=== PATIENT | female | born 2000 | race Caucasian/White ===

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

== ENCOUNTER → 2022-04-10 11:52 | Outpatient (CLI) | payer MEDICAID, SELFPAY ==
--- NOTE | 2022-04-10 11:58 | XR_ITS ---
FINAL REPORT TECHNIQUE: Chest PA & Lateral CLINICAL HISTORY: dyspnea, chest tightness FINDINGS: 2 views of the chest were performed. The heart size is normal. The mediastinum is within normal limits. There is no acute cardiopulmonary process. There are no pleural effusions. There is no pneumothorax. The bony thorax appears intact. IMPRESSION: No acute cardiopulmonary process. Reviewed, Interpreted and Dictated by Tommy Lima MD Transcribed by Jason Banuelos Authenticated and [facility][1]
== END ==
PROVIDERS: PCP Physician Assistant; Visit Provider Physician Assistant
DX: R06.00 Dyspnea, unspecified (principal)
CPT/HCPCS: 71046

== ENCOUNTER → 2022-06-22 11:00 | Outpatient (CLI) | payer MEDICAID, SELFPAY ==
[2022-06-22 18:56] LABS: Amphetamine/Metha Screen,Urine Negative ng/ml (<1000); Barbiturates Screen,Urine Negative ng/ml (<200)
[2022-06-22 18:57] LABS: Benzodiazepines Screen,Urine Negative ng/ml (<200)
[2022-06-22 18:58] LABS: Cannabinoid Screen,Urine Negative ng/ml (<50)
[2022-06-22 18:59] LABS: Cocaine Screen,Urine Negative ng/ml (<300)
[2022-06-22 19:00] LABS: Methadone Screen,Urine Negative ng/ml (<300); Opiate Screen,Urine Negative ng/ml (<300)
[2022-06-22 19:01] LABS: Phencyclidine Screen,Urine Negative ng/ml (<25)
== END ==
PROVIDERS: PCP Physician Assistant; Visit Provider Physician Assistant
DX: F90.9 Attention-deficit hyperactivity disorder, unspecified type (principal); Z79.899 Other long term (current) drug therapy
CPT/HCPCS: 80305

== ENCOUNTER → 2022-06-28 08:22 | Outpatient (CLI) | payer MEDICAID, SELFPAY ==
--- NOTE | 2022-06-28 08:26 | US_ITS ---
FINAL REPORT TECHNIQUE: Multiple transverse and longitudinal images CLINICAL HISTORY: Upper quadrant pain, right FINDINGS: There are gallstones of the gallbladder. No biliary ductal dilatation is appreciated. No fluid collections are seen. Limited portions of the right liver are unremarkable. Limited portions of the right kidney are unremarkable. IMPRESSION: 1. Cholelithiasis. 2. No evidence of biliary obstruction. Reviewed, Interpreted and Dictated by Johnson Ralph MD Transcribed by Mere Zavala Authenticated and [facility]
== END ==
PROVIDERS: PCP Physician Assistant; Visit Provider Physician Assistant
DX: R10.11 Right upper quadrant pain (principal)
CPT/HCPCS: 76705

== ENCOUNTER → 2022-07-06 10:50 | Outpatient (CLI) | payer MEDICAID, SELFPAY ==
[2022-07-06 11:17] LABS: Basophils # 0.1 K/mm3 (0-0.2); Basophils % 1.3 % (0.1-2.0); Eosinophils # 0.2 K/mm3 (0.0-0.4); Eosinophils % 2.4 % (0.1-12.0); Hematocrit 37.6 % (37.0-47.0); Hemoglobin 11.9 g/dL (12.2-16.2); Lymphocytes # 2.5 K/mm3 (0.7-4.5); Lymphocytes % 28.5 % (10-50); Mean Corpuscular HGB Conc 31.7 g/dL (31.8-35.4); Mean Corpuscular Volume 69.2 fl (81-99); Mean Platelet Volume 6.9 fl (7.4-10.4); Monocytes # 0.4 K/mm3 (0.1-1.0); Monocytes % 4.7 % (1.7-9.3); Neutrophils # 5.5 K/mm3 (1.8-7.8); Neutrophils % 63.1 % (37.0-80.0); Platelet Count 377 K/mm3 (142-424); Red Blood Count 5.44 M/mm3 (4.20-5.40); Red Cell Distribution Width 17.2 % (11.5-17.5); White Blood Count 8.7 K/mm3 (4.5-13.0)
[2022-07-06 11:48] LABS: Alanine Aminotransferase 13 U/L (12-78); Albumin Level 4.4 g/dl (3.5-5.0); Albumin/Globulin Ratio 1.5 (1.1-1.8); Alkaline Phosphatase 94 U/L (38-126); Anion Gap 7.1 mEq/L (5-15); Aspartate Amino Transferase 18 U/L (14-36); Bilirubin,Total 0.2 mg/dl (0.2-1.3); Blood Urea Nitrogen 18 mg/dl (7-17); Calcium 8.9 mg/dl (8.4-10.2); Carbon Dioxide 24 mmol/L (22.0-30.0); Chloride 110 mmol/L (98-107); Estimated Glomerular Filt Rate 81 ml/min (>60); GFR (African American) 98 ML/MIN (>60); Glucose 54 mg/dl (74-100); Potassium 4.1 mmoL/L (3.5-5.1); Sodium 137 mmol/L (136-145); Total Protein,Serum 7.4 g/dl (6.3-8.2)
== END ==
PROVIDERS: PCP Physician Assistant; Visit Provider Surgery
DX: K80.20 Calculus of gallbladder without cholecystitis without obstruction (principal)
CPT/HCPCS: 36415; 80053; 85025

== ENCOUNTER 2022-07-17 10:15 | Day surgery (SDC) | payer MEDICAID, SELFPAY ==
[2022-07-14 10:41] VITALS: BMI 29.9
[2022-07-17] VITALS (9 sets, daily range): BP systolic 91–147; BP diastolic 64–96; PULSE 90–97; RESP 16–22; TEMP 36.1–43; O2SAT 95–99
[2022-07-17 10:49] LABS: Urine Pregnancy, HCG Qual. Negative (Negative)
--- NOTE | 2022-07-17 11:12 | EXP.ANES.CKL ---
[facility] Disclaimer: The information contained in this section may have been updated after the patient was seen, as this information can be updated by other users. Medical History Asthma Attention Deficit Hyperactivity Disorder (ADHD) Insomnia Polyneuritis Seizure disorder Surgical History History of bladder surgery Family History Other Family history of stroke Lung cancer Social History (Updated 07/17/22 @ 10:58 by Laila Forrest RN) Smoking Status: Current every day smoker tobacco type: e-cigarettes alcohol intake: never substance use type: denies use current occupational status: unemployed Travel in the last 8 weeks: None [facility] Anesthesia Checklist Patient Identification Patient Identification: Arm Band and Family Structural Data Admitted From: Home Planned Operative Procedure/s: Lap Cholecystectomy Consent for Planned Operative Procedure(s) Verified: Yes Verified Documents: Surgical Consent NPO Status Verified Time NPO: 00:00 Additional verifications Patient : No Anesthesia Reactions: No Hx Blood Transfusions: No Blood Transfusion Reaction: No Cephalosporin Allergy: No Previous Colonoscopy: No Airway Assessment C-Spine Mobility Assessed: Yes TMJ Mobility Assessed: Yes Dentition: Good Dentition Neurological Assessment Level of Consciousness: Awake, Alert, Appropriate and Follows Commands Hx Seizures: Yes Anesthesia Plan Anesthesia Risk discussed: Yes ASA Class: II Anesthesia Type: General Preoperative Comments Pre-Operative Comments: Last seizure 4-5 weeks ago. Seizure of unknown etiology. ADHA. Benadryl cause hives. Amoxicillin causes blisters. Transient Asthma.
--- NOTE | 2022-07-17 14:46 | XR_ITS ---
FINAL REPORT CLINICAL HISTORY: CHOLANGIOGRAM IN OR .02 fluoro time FINDINGS: Two spot films for intraoperative cholangiogram was obtained in 0.2 minutes. There is opacification of the common duct. No filling defect is identified. IMPRESSION: Fluoroscopy time as above. Reviewed, Interpreted and Dictated by Zenia Payan MD Transcribed by Mere Zavala Authenticated and [facility]
--- NOTE | 2022-07-17 15:06 | EXP.OP.NOTE ---
Date of procedure: 07/17/22 Pre-op Diagnosis:: Symptomatic gallstones Post-op Diagnosis:: Same Procedure performed:: Laparoscopic cholecystectomy with intraoperative cholangiogram Surgeon:: Bishnu Uriostegui MD COATING MIXER SUPERVISOR:: Other Anesthesia: GETA Estimated blood loss (mL): 25 Clinical Note:: Patient is a 21-year-old female referred by Nelly Wolf for gallbladder.? She resides in [place] Patient is approximately 5 months from a normal vaginal delivery.? She states that after the of her child she has had some problems of epigastric and substernal pain radiating into the back.? This seems to be worse with spicy foods.? She actually had been seen recently in the emergency department at [facility] due to some more significant pains.? Possible gallbladder disease was apparently suspected and it was recommended she undergo gallbladder ultrasound through her primary care provider.? Gallbladder ultrasound reveals multiple gallstones with no evidence of any ductal dilatation or fluid collections. Operative findings:: She had a slightly distended gallbladder with multiple small gallstones. She had mild fatty infiltration of the liver. There was inflammation around the ilsa hepatis which made initial delineation of anatomy difficult. Operative note:: Patient was taken to the operating room. She was positioned in supine position. General anesthesia was induced via endotracheal tube. Abdomen was prepped and draped in the standard surgical fashion. Infraumbilical skin incision was made. Dissection was carried down to the fascia. While performing abdominal wall lift Veress needle was inserted. CO2 pneumoperitoneum was achieved to 15 mmHg. 11 mm optical trocar was inserted at the umbilicus. Intraperitoneal contents were visualized. She was positioned in reverse Trendelenburg left side down. A couple of 5 mm trocars were inserted in the right upper abdomen. 10 mm trocar was inserted in the epigastrium. She had some mild fatty infiltration of the liver. Gallbladder was grasped retracted anteriorly and superiorly over the dome of the liver. Infundibulum of the gallbladder was retracted anterior laterally. Blunt dissection was carried out at the neck of the gallbladder bluntly incising the visceral peritoneum. Dissection was rather difficult and it appears as though the neck of the gallbladder tapered to the cystic duct. It was unclear as to the definitive layout of the cystic duct. Due to the question delineating the anatomy and due to the small stones in the neck of the gallbladder decision was made to perform intraoperative cholangiogram. Cystic duct was clipped proximal to the gallbladder. Through a 2 mm incision made in the right upper abdomen taut cholangiocatheter introducer was inserted. Small incision was made in the cystic duct as a ductotomy. Cholangiocatheter was carefully manipulated into the cystic duct where it was secured with a Hemoclip. Ultimately intraoperative cholangiogram was performed which revealed normal filling of the cystic duct and biliary tree with no obvious obstruction, filling defect, or mass. Patient was then repositioned and the cholangiocatheter was removed. The cystic duct was multiply clipped and sharply divided. Cystic artery was identified and carefully coagulated with VIANNEY ultrasonic harmonic brittany and divided. Gallbladder was dissected free from the liver in a retrograde fashion using VIANNEY ultrasonic harmonic brittany gallbladder was placed within an Endo Catch retrieval device removed from the peritoneal cavity via the umbilical trocar site which required some minimal extension of the fascial incision for delivery. Gallbladder fossa was inspected for hemostasis. Limited use of electrocautery was used on the gallbladder fossa and surrounding liver at the falciform ligament for good hemostasis. Trocars were then removed as CO2 pneumoperitoneum was evacuated. Fascia the umbilicus was closed with sever
--- NOTE | 2022-07-17 15:08 | P.PNANES_ITS ---
[facility] Anesthesia Record Part I Anesthesia Record I Intake, IV Amount: 1,200 Estimated blood loss (mL): 15 Urine output (mL): 0 Blood Products used (#): none Blood Pressure: 91/64 SaO2: 99 Pulse Rate: 95 Respiratory Rate: 22 Temperature: 97.9 F Patient is:: Drowsy and Stable Stable to PACU at:: 14:58
--- NOTE | 2022-07-18 07:32 | P.PNANES_ITS ---
[facility] Anesthesia Record Part II Anesthesia Record Part II Discharge Time: 15:18 Destination: Surgical Day Care (OP Surgery) PACU nurse assessment reviewed?: Yes Patient Condition:: Good Anesthesia Complications:: None Swallowing reflex intact?: Yes Cyanosis?: No Blood Pressure: 147/96 Pulse Rate: 94 Temperature: 98.1 F Mental Status: Alert & Oriented Pain level:: 0 Nausea and/or vomitting:: None Intake, IV Amount: 0
[2022-07-18 07:33] VITALS: BP 147/96; PULSE 94; TEMP 36.7
== END 2022-07-17 16:09 | disposition home or self-care (01) ==
PROVIDERS: PCP Physician Assistant; Visit Provider Surgery
PROC: 0FT44ZZ Resection of Gallbladder, Percutaneous Endoscopic Approach (ICD-10-PCS; CPT 47562; principal; 2022-07-17 11:45)
DX: F17.210 Nicotine dependence, cigarettes, uncomplicated; Z79.899 Other long term (current) drug therapy; K80.10 Calculus of gallbladder with chronic cholecystitis without obstruction
CPT/HCPCS: 47563; 74019; 76000; 81025; 96374; J2405

== ENCOUNTER → 2022-10-23 14:30 | Outpatient (CLI) | payer MEDICAID, SELFPAY ==
[2022-10-23 18:29] LABS: Amphetamine/Metha Screen,Urine Negative ng/ml (<1000)
[2022-10-23 18:30] LABS: Barbiturates Screen,Urine Negative ng/ml (<200)
[2022-10-23 18:31] LABS: Benzodiazepines Screen,Urine Negative ng/ml (<200); Cannabinoid Screen,Urine Negative ng/ml (<50)
[2022-10-23 18:32] LABS: Opiate Screen,Urine Negative ng/ml (<300)
[2022-10-23 18:33] LABS: Cocaine Screen,Urine Negative ng/ml (<300); Methadone Screen,Urine Negative ng/ml (<300)
[2022-10-23 18:34] LABS: Phencyclidine Screen,Urine Negative ng/ml (<25)
== END ==
PROVIDERS: PCP Physician Assistant; Visit Provider Physician Assistant
DX: Z79.899 Other long term (current) drug therapy (principal)
CPT/HCPCS: 80305

== ENCOUNTER 2023-07-11 13:44 | Outpatient (CLI) | payer MEDICAID, SELFPAY ==
--- NOTE | 2023-07-11 13:54 | XR_ITS ---
FINAL REPORT CLINICAL HISTORY: right hand pain shielded FINDINGS: Right hand Three views were obtained. There is no acute fracture or dislocation. The joint spaces appear normal. No soft tissue abnormality is identified. IMPRESSION: No acute process. Reviewed, Interpreted and Dictated by Bishnu Smith III, MD Transcribed by Mere Zavala Authenticated and [facility]
== END 2023-07-11 23:59 ==
LOC: RAD 13:44
PROVIDERS: PCP Physician Assistant; Visit Provider Physician Assistant
DX: M79.641 Pain in right hand (principal)
CPT/HCPCS: 73130

== ENCOUNTER 2025-06-03 17:02 | Emergency (ER) | payer MEDICAID, SELFPAY ==
--- OUTSIDE RECORDS SUMMARY | 2025-05-29 10:45 | XMS_ITS | Encounter Summary ---
Author Organization [facility] Address [address] [place] [address] Care Team Providers Care Air Grinder Name Role Phone Paulina Chowdary APRN Primary Care Provider Reason for Visit * Reason Comments Cough Sore Throat Fatigue Headache Dizzy, coughing yell ow stuff Encounter Details Date Type Department Care Team (Late st Contact Info) Description 05/29/2025 10:45 AM EST Office Visit [facility] [address] [place] [phone] Paulina Chowdary APRN [address] [place] [address] Sore throat (Primary Dx); Acute pharyngitis, unspecified etiology; Viral syndrome; Influenza A Social History Tobacco Use Types Packs/Day Years Used Date Smoking Tobacco: Never Smokeless Tobacco: Never Alcohol Use Standard Drinks/Week Comments Not Currently 0 (1 standard drink = 0.6 oz pur e alcohol) PHQ-2 Answer Date Recorded Patient Health Questionnaire-2 Score 0 05/29/2025 Comments Unknown Sex and Gender Information Value Date Recorded Sex Assigned at Female 08/17/2023 8:40 AM EDT Legal Sex Female 12:01 PM EDT Gender Identity Female 08/17/2023 8:40 AM EDT Sexual Orientation Straight 08/17/2023 8: 40 AM EDT Occupation Industry Job Start Date Job End Date unemployed Not on file Not on file Not on file documented as of this encounter Last Filed Vital Signs Vital Sign Reading Time Taken Comments Blood Pressure 122/78 05/29/2025 10:38 AM EST Pulse 147 05/29/2025 10:38 AM EST Temperature 37 C (98.6 F) 05/29/2025 10:38 AM EST Respiratory Rate - - Oxygen Saturation 97% 05/29/2025 10:38 AM EST Inhaled Oxygen Concentration - - Weight 132 kg (290 lb 12.8 oz) 05/29/2025 10:38 AM EST Height 170.2 cm (5' 7 ) 05/29/2025 10:38 AM EST Body Mass Index 45.55 05/29/2025 10:38 AM EST documented in this encounter Functional Status * PHQ-2/PHQ-9: Depression Screening Question Answer Date of Assessment Author Little interest or pleasure in doing things Not at all 05/29/2025 10:40 AM Betzy Roth MA Feeling down, depressed, or hopeless Not at all 05/29/2025 10:40 AM Vince Roth MA Patient Health Questionnaire-2 Score 0 05/29/2025 10:40 AM Elijah Roth MA How difficult have these problems made it for you to do your work, take care of things at home, or get along with other people? Not difficult at all 05/29/2025 10:40 AM Betzy Roth MA documented as of this encounter Mental Status * PHQ-2/PHQ-9: Depression Screening Question Answer Entry Date Author Little interest or pleasure in doing things Not at all 05/29/2025 10:40 AM Betzy Roth MA Feeling down, depressed, or hopeless Not at all 05/29/2025 10:40 AM Betzy Roth MA Patient Health Questionnaire-2 Score 0 05/29/2025 10:40 AM Betzy Roth MA How difficult have these problems made it for you to do your work, take care of things at home, or get along with other people? Not difficult at all 05/29/2025 10:40 AM Betzy Roth MA documented in this encounter Progress Notes * Paulina Chowdary APRN - 05/29/2025 10:45 AM EST Images from the original note were not included. Office Note Name: Lydia Holden : 2000 Chief Complaint Cough, Sore Throat, Fatigue, and Headache (Dizzy, coughing yellow stuff) Subjective History of Present Illness The patient presents for evaluation of respiratory illness. She began experiencing symptoms a few days prior to , initially attributing them to dry air due to her preference for a cool sleeping environment. She experienced morning sore throats that resolved without intervention. However, her condition deteriorated on and has continuedto worsen. She reports a persistent cough, particularly severe in the mornings, necessitating the use of cough drops. She also experiences back pain, which she attributes to a previous epidural procedure. She describes a general feeling of malaise and lack of energy, with an episode of dizziness occurring during her walk to the clinic. She reports no recent gastrointestinal symptoms such as vomiting, diarrhea, or nausea. She has been experiencing chills but is uncertain about the presence of fever. No other household members are currently ill. 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 Objective Past Medical History: Diagnosis Date ADHD (attention deficit hyperactivity disorder) Anxiety Chlamydia Depression Past Surgical History: Procedure Laterality Date APPENDECTOMY BLADDER SURGERY CHOLECYSTECTOMY Family History Problem Relation Name Age of Onset Stroke Mother Diabetes Maternal Aunt Vital Signs BP 122/78 (BP Location: Left arm, Patient Position: Sitting, Cuff Size: Adult) Pulse (!) 147 Temp 98.6 ??F (37 ??C) (Temporal) Ht 170.2 cm (67 ) Wt 132 kg (290 lb 12.8 oz) SpO2 97% BMI 45.55 kg/m?? Estimated body mass index is 45.55 kg/m?? as calculated from the following: Height as of this encounter: 170.2 cm (67 ). Weight as of this encounter: 132 kg (290 lb 12.8 oz). Facility age limit for growth %bret is 20 years. Physical Exam Vitals reviewed. HENT: Head: Normocephalic and atraumatic. Right Ear: Tympanic membrane, ear canal and external ear normal. Left Ear: Tympanic membrane, ear canal and external ear normal. Nose: Congestion present. Mouth/Throat: Pharynx: Oropharynx is clear. Posterior oropharyngeal erythema present. Eyes: Conjunctiva/sclera: Conjunctivae normal. Cardiovascular: Rate and Rhythm: Normal rate and regular rhythm. Pulses: Normal pulses. Heart sounds: Normal heart sounds. Pulmonary: Effort: Pulmonary effort is normal. Breath sounds: Normal breath sounds. Abdominal: General: Bowel sounds are normal. Palpations: Abdomen is soft. Musculoskeletal: Cervical back: Neck supple. Skin: General: Skin is warm and dry. Neurological: Mental Status: She is alert and oriented to person, place, and time. POCT Results (if applicable): Results for orders placed or performed in visit on 05/29/25 POCT SARS-CoV-2 + Flu Antigen JEB Collection Time: 05/29/25 10:49 AM Specimen: Swab Result Value Ref Range SARS Antigen Not Detected Not Detected, Presumptive Negative Influenza A Antigen JEB Detected (A) Not Detected Influenza B Antigen JEB Not Detected Not Detected Internal Control Passed (A) Passed Lot Number [id number] Expiration Date 10/14/2025 POC Rapid Strep A Collection Time: 05/29/25 10:50 AM Specimen: Swab Result Value Ref Range Rapid Strep A Screen Negative Negative, VALID, INVALID, Not Performed Internal Control Passed Passed Lot Number [id number] Expiration Date 05/29/2026 Assessment and Plan Diagnoses and all orders for this visit: 1. Sore throat (Primary) - Cancel: Covid-19 + Flu A&B AG, Veritor - POCT SARS-CoV-2 + Flu Antigen JEB - POC Rapid Strep A 2. Acute pharyngitis, unspecified etiology - POCT SARS-CoV-2 + Flu Antigen JEB - POC Rapid Strep A 3. Viral syndrome - POCT SARS-CoV-2 + Flu Antigen JEB - POC Rapid Strep A 4. Influenza A Assessment & Plan 1. Influenza. She tested positive for influenza. The patient reports symptoms including body aches, chills, and asore throat that worsened over time. She also experiences significant fatigue and dizziness. A prescription for cough syrup has been provided, to be taken up to four times daily as needed. Additionally, ibuprofen has been prescribed to manage her fever and body aches. She is advised to maintain adequate hydration and rest. A work note has been issued for her absence today and on Sunday. Follow Up No follow-ups on file. Patient or patient livestock sales representative verbalized consent for the use of Ambient Listening during the visit with Paulina Chowdary APRN for chart documentation. 05/29/2025 11:20 EST Paulina Chowdary APRN documented in this encounter Plan of Treatment Not on file documented as of this encounter Procedures Procedure Name Priority Date/Time Associated Diagnosis Comments POCT RAPID STREP A Routine 05/29/2025 10 :50 AM EST Sore throat Acute pharyngitis, unspecified etiology Viral syndrome POC FLU + SARS ANTIGEN JEB Routine 05/29/2025 10:49 AM EST Sore throat Acute pharyngitis, unspecified etiology Viral syndrome documented in this encounter Results * POC Rapid Strep A (05/29/2025 10:50 AM EST) [facility] Rapid Strep A Screen Negative Negative, VALID, INVALID, Not Performed [facility] Internal Control Passed Passed [facility] Lot Number [id number] [facility] Expiration Date 05/29/2026 [facility] Swab 05/29/2025 10:5 0 AM EST Paulina Chowdary APRN POINT OF CARE TEST ORDERABL ES Final Result [facility]
[address] [place] [address], * (ABNORMAL) POCT SARS-CoV-2 + Flu Antigen JEB (05/29/2025 10:49 AM EST) SARS Antigen Not Detected Not Detected, Presumptive Negative Influenza A Antigen JEB Detected(A) Not Detected Influenza B Antigen JEB Not Detected Not Detected Internal Control Passed(A) Passed Lot Number [id number] Expiration Date 10/14/2025 Swab 05/29/2025 10:4 9 AM EST us Paulina Chowdary APRN POINT OF CARE TEST ORDERABL ES Final Result documented in this encounter Visit Diagnoses Diagnosis Sore throat- Primary Acute pharyngitis Acute pharyngitis, unspecified etiology Viral syndrome Unspecified viral infection, in conditions classified elsewhere and of unspecified site Influenza A Influenza with other respiratory manifestations documented in this encounter Additional Health Concerns Infection Onset Date Last Indicated Resolved Time Influenza 05/29/2025 05/29/2025 Assessment Noted Time PHQ-2 Depression Total Score: 2 08/15/19 2:57 PM EDT documented as of this encounter Care Teams Air Grinder Relationship Specialty Start Date End Date Paulina Chowdary, FAUCET POLISHER [address] [place] [id number] PCP - General Family Medicine 08/15/23 documented as of this encounter
--- OUTSIDE RECORDS SUMMARY | 2025-06-03 17:21 | XMS_ITS | Encounter Summary ---
Author Organization [facility] Address [address] [place] [id number] Care Team Providers Care Marine Equipment Research Engineer Name Role Phone EpiPaulina gray Julian MINING AND QUARRYING MACHINERY REPAIRER Primary Care Provider [phone] Reason for Visit * Reason Comments Med Refill Encounter Details Date Type Department Care Team (Late st Contact Info) Description 04/10/2025 Refill [facility] [address] [place] [phone] Chris Granda APRN [address] [place], [place] [id number] Attention deficit hyperactivity disorder (ADHD), combined type Social History Tobacco Use Types Packs/Day Years Used Date Smoking Tobacco: Never Smokeless Tobacco: Never Alcohol Use Standard Drinks/Week Comments Not Currently 0 (1 standard drink = 0.6 oz pur e alcohol) PHQ-2 Answer Date Recorded Retired PHQ-9: Brief Depression Severity Measure Score 13 08/15/2023 Comments Unknown Sex and Gender Information Value Date Recorded Sex Assigned at Female 08/17/2023 8:40 AM EDT Legal Sex Female 12:01 PM EDT Gender Identity Female 08/17/2023 8:40 AM EDT Sexual Orientation Straight 08/17/2023 8: 40 AM EDT Occupation Industry Job Start Date Job End Date unemployed Not on file Not on file Not on file documented as of this encounter Plan of Treatment Not on file documented as of this encounter Visit Diagnoses Diagnosis Attention deficit hyperactivity disorder (ADHD), combined type documented in this encounter Additional Health Concerns Assessment Noted Time PHQ-2 Depression Total Score: 2 08/15/19 24 2:57 PM EDT documented as of this encounter Care Teams Marine Equipment Research Engineer Relationship Specialty Start Date End Date Paulina Chowdary APRN [address] [place] [address] PCP - General Family Medicine 08/15/23 documented as of this encounter
--- OUTSIDE RECORDS SUMMARY | 2025-06-03 17:21 | XMS_ITS | Patient Health Record ---
Author Organization [facility] Billing Info Address [address] [place] [phone] Phone [phone] Care Team Providers Care Diet Clerk Name Role Phone OANH CASIANO MD [facility] [phone] Allergies Allergen (clinical drug ingredient) Drug/Non Drug Allergy documented on EMR Reaction Allergy Type Onset Date Status diphenhydramine Benadryl Unknown Drug Allergy A ctive amoxicillin Amoxicillin Unknown Drug Allergy Act karthik Reason For Referral No Information Medications Medication SIG (Take, Route, Frequency, Duration) Notes Start Date End Date Diagnosis (ICD Code) Status Adderall XR 30 MG Capsule Extended Release 24 Hour Oral; Duration: 30 Days Active Social History Sex Observation Social History Observation Description Sex Observation Female Social History Social History Social Info Question Answer Notes Tobacco Status: Patient is a non tobacco user Illicit Drug Use: Patient/Family reports: No illicit d rug use Alcohol Use: Patient does not use alcohol Problems Problem Type SNOMED Code ICD Code Dates Problem Status W/U Status Risk Notes Problem Attention deficit hyperactivity disorder (080500115) ADHD (attention deficit hyperactivity disorder) (F90.9) Added On:06/21 Active confirmed Plan Of Treatment No Information Insurance Providers Payer Name Payer Address Payer Phone Subscriber Number Group Number Insured Name Patient Relationship to Insured Coverage Start Date Coverage End Date [facility] [place] [employer] [address] [address] CLAIMS DEPARTMENT [place], [place] [id number] Lydia Holden Self - patient is the insured Medical (General) History Medical History History ICD Code ADHD (attention deficit hyperactivity di sorder) F90.9 Surgical History Surgery Date(Month/Year) Bladder Lap Appy Lap Jane
--- OUTSIDE RECORDS SUMMARY | 2025-06-03 17:21 | XMS_ITS | Encounter Summary ---
Author Organization [facility] Address [address] [place] [address] Care Team Providers Care Septic Technician Name Role Phone EpiPaulina gray Julian PATIENT CARRIER Primary Care Provider [phone] Reason for Visit * Reason Onset Date Comments Med Refill 04/10/2025 Encounter Details Date Type Department Care Team (Late st Contact Info) Description 04/10/2025 Refill [facility] [address] [place] [phone] Chris Granda APRN [address] [place] [address] Attention deficit hyperactivity disorder (ADHD), combined type [...] on file documented as of this encounter Miscellaneous Notes * Telephone Encounter - Ivone Donis MA - 04/10/2025 10:07 AM EST Duplicate rx was sent on 04/01 documented in this encounter Plan of Treatment Not on file documented as of this encounter Visit Diagnoses Diagnosis Attention deficit hyperactivity disorder (ADHD), combined type documented in this encounter Additional Health Concerns Assessment Noted Time PHQ-2 Depression Total Score: 2 08/15/19 24 2:57 PM EDT documented as of this encounter Care Teams Septic Technician Relationship Specialty Start Date End Date Paulina Chowdary, PATIENT CARRIER [address] [place], [place] [id number] PCP - General Family Medicine 08/15/23 documented as of this encounter
--- OUTSIDE RECORDS SUMMARY | 2025-06-03 17:21 | XMS_ITS | Encounter Summary ---
Author Organization [facility] Address [address] [place] [address] Care Team Providers Care Actor Understudy Name Role Phone Paulina Chowdary APRN Primary Care Provider [phone] Encounter Details Date Type Department Care Team (Latest Contact Info) Description 05/29/2025 Travel Social History Tobacco Use Types Packs/Day Years [...] documented as of this encounter Visit Diagnoses Not on filedocumented in this encounter Additional Health Concerns Infection Onset Date Last Indicated Resolved Time COVID (rule out) 05/29/2025 05/29/2025 05/29/2025 10:42 AM EST Influenza 05/29/2025 05/29/2025 Assessment Noted Time PHQ-2 Depression Total Score: 2 08/15/19 24 2:57 PM EDT documented as of this encounter Care Teams Actor Understudy Relationship Specialty Start Date End Date Paulina Chowdary APRN [address] [place] [id number] PCP - General Family Medicine 08/15/23 documented as of this encounter
--- OUTSIDE RECORDS SUMMARY | 2025-06-03 17:21 | XMS_ITS | Clinical Summary ---
Author Organization [facility] Address [address] [place] [address] Care Team Providers Care Dairy Feed Sales Consultant Name Role Phone Paulina Chowdary APRN Primary Care Provider Allergies Active Allergy Reactions Criticality Noted Date Comments Amoxicillin Unknown - Low Severity 07/29/2021 Diphenhydramine Unknown - Low Severity 07/29/19 22 Medications * This document contains information received from the source organization and may not represent a complete record from that organization. amphetamine-dextr oamphetamine (ADDERALL) 10 MG tabletIndications :Attention deficit hyperactivity disorder (ADHD), combined type Take 1 tablet by mouth Every Afternoon. 30 tablet 5 Active amphetamine-dextr oamphetamine XR (Adderall XR) 30 MG 24 hr capsuleIndication s:Attention deficit hyperactivity disorder (ADHD), combined type Take 1 capsule by mouth Every Morning 30 capsule 5 Active brompheniramine-p seudoephedrine-DM 30-2-10 MG/5ML syrupIndications: Influenza A Take 10 mL by mouth 4 (Four) Times a Day As Needed for Congestion. 250 mL 5 Active ibuprofen (Advil) 200 MG tabletIndications :Influenza A Take 1 tablet by mouth Every 6 (Six) Hours As Needed for Moderate Pain. 30 tablet 5 Active amphetamine-dextr oamphetamine (ADDERALL) 10 MG tabletIndications :Attention deficit hyperactivity disorder (ADHD), combined type Take 1 tablet by mouth Every Afternoon. 30 tablet 5 05/05/20 25 Discontin ued(Reord er) amphetamine-dextr oamphetamine XR (Adderall XR) 30 MG 24 hr capsuleIndication s:Attention deficit hyperactivity disorder (ADHD), combined type Take 1 capsule by mouth Every Morning 30 capsule 5 05/25/20 25 Discontin ued(Reord er) amphetamine-dextr oamphetamine XR (Adderall XR) 30 MG 24 hr capsuleIndication s:Attention deficit hyperactivity disorder (ADHD), combined type Take 1 capsule by mouth Every Morning 30 capsule 5 05/26/20 25 Discontin ued(Reord er) Active Problems Problem Noted Date Diagnosed Date Influenza A 05/29/2025 Encounter to establish care 08/18/2023 Assessment & Plan (08/18/2023 6:54 AM EDT): Patient here today to establish care with diagnoses of anxiety, depression and ADHD. She is in need of a comprehensive physical exam which she is agreeable to complete during follow-up in 3 months. Attention deficit hyperactiv ity disorder (ADHD), combined type 08/15/2023 Assessment & Plan (08/08/2024 11:38 AM EST): Patient diagnosed with ADD at such a young age she cannot even remember. She had been maintained on her current dose of Adderall XR 30 mg every morning and 5 mg daily in the evening for many many years. She verbalized both hyperactivity and inattentive components. Patient's Perfecto report reviewed and satisfactory, UDS and controlled substance agreement is up-to-date. Will continue her Adderall 5 mg in the afternoon and XR 30 mg every morning dosing. Assessment & Plan (05/08/2024 7:02 PM EST): Patient diagnosed with ADD at such a young age she cannot even remember. She had been maintained on her current dose of Adderall XR 30 mg every morning and 5 mg daily in the evening for many many years. She verbalized both hyperactivity and inattentive components. His Perfecto report reviewed and satisfactory. Will continue current Adderall dosing. UDS obtained in office today, CSA updated. Will continue Adderall 5 mg daily and Adderall XR 30 mg every morning. Follow-up in 3-month Assessment & Plan (01/31/2024 4:03 PM EDT): Patient diagnosed with ADD at such a young age she cannot even remember. She had been maintained on her current dose of Adderall XR 30 mg every morning and 5 mg daily in the evening for many many years. She verbalized both hyperactivity and inattentive components. His Perfecto report reviewed and satisfactory. Will continue current Adderall dosing. Patient is leaving on vacation on March 03 and will be gone when her next prescription is due. She would like permission given to pharmacy to feel a few days early so that she does not run out while out of town. Assessment & Plan (11/19/2023 3:08 PM EDT): Patient diagnosed with ADD at such a young age she cannot even remember. She had been maintained on her current dose of Adderall XR 30 mg every morning and 5 mg daily in the evening for many many years. She verbalized both hyperactivity and inattentive components. Perfecto report reviewed and satisfactory, we will continue Adderall at current dosing. Assessment & Plan (10/22/2023 4:47 PM EDT): diagnosed with ADD at such a young age she cannot even remember. She had been maintained on her current dose of Adderall XR 30 mg every morning and 5 mg daily in the evening for many many years. She verbalized both hyperactivity and inattentive components. Perfecto report reviewed and satisfactory, we will continue Adderall at current dosing. Assessment & Plan (08/18/2023 6:52 AM EDT): Patient states that she was unable to get her Adderall from her previous PCP after testing positive for marijuana on her random urine drug screen. Patient is adamant that she had not smoked marijuana so she is unsure how her urine drug test was contaminated. Patient states she was diagnosed with ADHD at such a young age she cannot even remember. She has been maintained on her current dose of Adderall XR 30 mg every morning and 5 mg daily Adderall in the evening for many many years. She states both and hyperactivity and inattentive component. -Patient advised that if urine drug screen is positive for any controlled substances besides her Adderall she will be unable to receive treatment at our office. Controlled substance agreement reviewed and signed. Patient has submitted urine drug screen. Will wait for results before refilling Adderall. Anxiety and depression 08/15/2023 Assessment & Plan (08/08/2024 11:40 AM EST): In regards to anxiety and depression patient began treatment with medications, counseling and therapy at the age of 14 after the of her father. She has chosen not to pursue therapy and counseling in adulthood feeling that it was not beneficial to her, as she was never comfortable talking to strangers. She feels her mood has been stable on escitalopram 10 mg daily, But today feels that her anxiety has been increasing. She notes easier irritability and agitation, she also notes some lethargy and lack of motivation. Increase lexapro to 20mg Vraylar sample during last visit. Patient states it did provide excellent mood stability, however she took it in the morning and made her too tired and if she took it in the evening it made her stay awake. We discussed taking it at a different time than her afternoon dose of Adderall. Assessment & Plan (05/08/2024 7:05 PM EST): In regards to anxiety and depression patient began treatment with medications, counseling and therapy at the age of 14 after the of her father. She has chosen not to pursue therapy and counseling in adulthood feeling that it was not beneficial to her, as she was never comfortable talking to strangers. She feels her mood has been stable on escitalopram 10 mg daily, But today feels that her anxiety has been increasing. She notes easier irritability and agitation, she also notes some lethargy and lack of motivation. Increase lexapro to 20mg Sample vraylar 1.5mg daily with the patient. She is going to call the office in 2 weeks, if beneficial will send prescription to initiate Vraylar. Assessment & Plan (01/31/2024 4:03 PM EDT): In regards to anxiety and depression patient began treatment with medications, counseling and therapy at the age of 14 after the of her father. She has chosen not to pursue therapy and counseling in adulthood feeling that it was not beneficial to her, as she was never comfortable talking to strangers. She feels her mood has been stable on escitalopram 10 mg daily. -Continue escitalopram 10 mg daily Assessment & Plan (11/19/2023 3:08 PM EDT): In regards to anxiety and depression patient began treatment with medications, counseling and therapy at the age of 14 after the of her father. She has chosen not to pursue therapy and counseling in adulthood feeling that it was not beneficial to her, as she was never comfortable talking to strangers. She feels her mood has been stable on escitalopram 10 mg daily. -Continue escitalopram 10 mg daily Assessment & Plan (10/22/2023 4:47 PM EDT): In regards to anxiety and depression patient began treatment with medications, counseling and therapy at the age of 14 after the of her father. She has chosen not to pursue therapy and counseling in adulthood feeling that it was not beneficial to her, as she was never comfortable talking to strangers. She feels her mood has been stable on escitalopram 10 mg daily. Assessment & Plan (08/18/2023 6:50 AM EDT): patient states she began treatment with medications, counseling and therapy at the age of 14 after the of her father. Patient states she has not pursued therapy and counseling in adulthood feeling that it was beneficial for her, she was never comfortable talking to strangers. She feels her mood is currently stable on escitalopram 10 mg daily. She is not interested in pursuing behavioral health on a regular basis. No SI or HI Heterozygous for MTHFR gene mutation 10/26/2021 Overview (10/26/2021): Single C67T MTHFR gene mutation. Assessment & Plan (11/23/2021 3:34 PM EDT): Reinforced importance of taking additional folic acid 4 mg daily. SGA (small for gestational a ge), , affecting care of mother, antepartum, third trimester, other fetus 10/14/2021 Overview (11/23/2021): 10/14/21; f/u view u/s with lagging AC 5% and HC. Unable to complete anomaly views of heart due to position. Repeat u/s for growth and f/u views heart 4 wk. Missed f/u visits 11/11 u/s Ultrasound 11/23/2021 with estimated weight of 42 percentile. AEC and HC both 17 percentile. Acute cystitis without hematuria 08/03/2021 Overview (08/03/2021): Patient with E. coli UTI on urine culture. Sensitive to Macrobid. Rx Macrobid 1 p.o. twice daily for 7 days sent to pharmacy. Intrauterine in teenager 07/29/2021 Overview (07/29/2021): 20 years of age. Obesity (BMI 30-39.9) 07/29/2021 Overview (07/29/2021): BMI 34 Assessment & Plan (05/08/2024 7:01 PM EST): Patient's (Body mass index is 41.19 kg/m .) indicates that they are morbidly/severely obese (BMI > 40 or > 35 with obesity - related health condition) with health conditions that include none . Weight is unchanged. BMI is above average; BMI management plan is completed. We discussed portion control and increasing exercise. Assessment & Plan (11/19/2023 3:09 PM EDT): Patient's (There is no height or weight on file to calculate BMI.) indicates that they are obese (BMI >30) with health conditions that include none . Weight is unchanged. BMI is above average; BMI management plan is completed. We discussed portion control and increasing exercise. Assessment & Plan (10/22/2023 4:48 PM EDT): Patient's (There is no height or weight on file to calculate BMI.) indicates that they are morbidly/severely obese (BMI > 40 or > 35 with obesity - related health condition) with health conditions that include none . Weight is unchanged. BMI is above average; BMI management plan is completed. We discussed portion control and increasing exercise. Assessment & Plan (08/18/2023 6:54 AM EDT): Patient's (Body mass index is 42.27 kg/m .) indicates that they are morbidly/severely obese (BMI > 40 or > 35 with obesity - related health condition) with health conditions that include none . Weight is unchanged. BMI is above average; BMI management plan is completed. We discussed portion control and increasing exercise. Irregular menses 07/29/2021 Overview (07/29/2021): LMP 02/2021 Resolved Problems Problem Noted Date Diagnosed Date Resolved Date Mild hyperemesis gravidarum 10/14/2021 08/18/2023 Overview (10/14/2021): 10/14/21; Pt states worsening of symptoms but has not been taking medications because moved. Refill of Diclegis, Reglan, Pepcid, and Zofran sent to new pharmacy. Assessment & Plan (11/23/2021 2:05 PM EDT): Patient says went to ER for IV fluids in late October and has not had recurrence of hyperemesis. Currently not taking medications for nausea. Assessment & Plan (10/14/2021 1:35 PM EDT): Patient instructed how to take medications. Needs to take Diclegis every day for it to work; 2 at night and then 1-2 as needed the next day. Take Pepcid and Reglan daily as scheduled. Zofran as needed. Go to ER for IV hydration if not improved. May scheduled IV infusions at infusion center if not improving. 07/29/2021 08/18/2023 Overview (08/04/2021): Dates by 13 and3/ 7-week ultrasound. History of irregular menses. 07/29:Cell free DNA screening was negative. Consistent with female fetus. Rubella nonimmune. E. coli UTI on labs. Nausea and vomiting during 07/29/2021 08/18/2023 Overview (10/14/2021): Requests zofran rx. Rx Reglan 10 mg prn. Rx Pepcid 20 mg po bid. Rx Diclegis Assessment & Plan (09/16/2021 11:35 AM EDT): Improving; has not had to take Zofran for two weeks. Encounters * This document contains information received from the source organization and may not represent a complete record from that organization. Date Type Department Care Team Description 05/29/2025 10:45 AM EST Office Visit [facility] [address] [place] [phone] Paulina Chowdary, SAVANNA Sore throat (Primary Dx); Acute pharyngitis, unspecified etiology; Viral syndrome; Influenza A 05/29/2025 Travel 05/26/[address] [facility] [address] [place] [phone] Chris Granda APRN Attention deficit hyperactivity disorder (ADHD), combined type 04/10/[address] [facility] [address] [place] [address] [address] Chris Granda APRN Attention deficit hyperactivity disorder (ADHD), combined type 04/10/[address] [facility] [address] [place] [address] [address] Chris Granda APRN Attention deficit hyperactivity disorder (ADHD), combined type 04/01/[address] [facility] [address] [place] [address] [address] Chris Granda APRN Attention deficit hyperactivity disorder (ADHD), combined type 04/01/[address] [facility] [address] [place] [address] [address] Paulina Chowdary APRN 03/12/[address] [facility] [address] [place] [address] [phone] Paulina Chowdary, CONTRACTING OFFICER Attention deficit hyperactivity disorder (ADHD), combined type from Last 3 Months Family History Medical History Relation Name Comments Diabetes Maternal Aunt Stroke Mother Relation Name Status Comments Father Maternal Aunt Mother Alive Social History Tobacco Use Types Packs/Day Years Used Date Smoking Tobacco: Never Smokeless Tobacco: Never Tobacco Cessation:Counseling Given: Not Answered Alcohol Use Standard Drinks/Week Comments Not Currently [...] file Not on file Not on file Last Filed Vital Signs Vital Sign Reading Time Taken Comments Blood Pressure 122/78 05/29/2025 10:38 AM EST Pulse 147 05/29/2025 10:38 AM EST Temperature 37 C (98.6 F) 05/29/2025 10:38 AM EST Respiratory Rate 18 05/05/2024 3:28 PM EST Oxygen Saturation 97% 05/29/2025 10:38 AM EST Inhaled Oxygen Concentration - - Weight 132 kg (290 lb 12.8 oz) 05/29/2025 10:38 AM EST Height 170.2 cm (5' 7 ) 05/29/2025 10:38 AM EST Body Mass Index 45.55 05/29/2025 10:38 AM EST Plan of Treatment Health Maintenance Due Date Last Done Comments Annual Gynecologic Pelvic an d Breast Exam 2002 HPV VACCINES (1 - 3-dose series) 2017 MENINGOCOCCAL B VACCINE (1 o f 2 - Standard) 2018 ANNUAL PHYSICAL 07/26/2021 TDAP/TD VACCINES (1 - Tdap) 2021 CHLAMYDIA SCREENING 07/29/2022 07/29/2021 PAP SMEAR 08/30/2023 INFLUENZA VACCINE 01/02/2025 MENINGOCOCCAL VACCINE Completed 10/21/2018 , 03/06/2003 HEPATITIS C SCREENING Completed 07/29/2021 Pneumococcal Vaccine 0-49 Aged Out No longer eligible based on patient's age to complete this topic Procedures Procedure Name Priority Date/Time Associated Diagnosis Comments POCT RAPID STREP A Routine 05/29/2025 10 :50 AM EST Sore throat Acute pharyngitis, unspecified etiology Viral syndrome POC FLU + SARS ANTIGEN JEB Routine 05/29/2025 10:49 AM EST Sore throat Acute pharyngitis, unspecified etiology Viral syndrome CHLAMYDIA TRACHOMATIS, NEISSERIA GONORRHOEAE, PCR Routine 07/29/2021 2:53 PM EST Possible , not confirmed OB PANEL WITH HIV AND RPR Routine 07/29/2021 2:53 PM EST Possible , not confirmed from Last 3 Months or Most Recently Relevant to Health Maintenance Results * POC Rapid Strep A (05/29/2025 10:50 AM EST) [facility] Rapid Strep A Screen Negative Negative, VALID, INVALID, Not Performed [facility] Internal Control Passed Passed [facility] Lot Number [id number] [facility] Expiration Date 05/29/2026 [facility] Swab 05/29/2025 10:5 0 AM EST Paulina Chowdary CONTRACTING OFFICER POINT OF CARE TEST ORDERABL ES Final Result [facility]
[address] [place] [address], * (ABNORMAL) POCT SARS-CoV-2 + Flu Antigen JEB (05/29/2025 10:49 AM EST) [facility] SARS Antigen Not Detected Not Detected, Presumptive Negative Influenza A Antigen JEB Detected(A) Not Detected Influenza B Antigen JEB Not Detected Not Detected Internal Control Passed(A) Passed Lot Number [id number] Expiration Date 10/14/2025 Swab 05/29/2025 10:4 9 AM EST Paulina Chowdary CONTRACTING OFFICER POINT OF CARE TEST ORDERABL ES Final Result * (ABNORMAL) OB Panel With HIV (07/29/2021 2:53 PM EST) Hepatitis B Surface Ag Negative Negative [facility] Hep C Virus Ab <0.1 0.0 - 0.9 s/co ratio [facility] Comment: Negative: < 0.8 Indeterminate: 0.8 - 0.9 Positive: > 0.9 The CDC recommends that a positive HCV antibody result be followed up with a HCV Nucleic Acid Amplification test (671215). RPR Non Reactive Non Reactive [facility] Rubella Antibodies, IgG <0.90(L) Immune >0.99 index [facility] Comment: Non-immune <0.90 Equivocal 0.90 - 0.99 Immune >0.99 ABO Type B [facility] Rh Factor Positive [facility] Comment: Please note: Prior records for this patient's ABO / Rh type are not available for additional verification. Antibody Screen Negative Negative [facility] HIV Screen 4th Gen w/RFX (Reference) Non Reactive Non Reactive [facility] Comment: HIV Negative HIV-1/HIV-2 antibodies and HIV-1 p24 antigen were NOT detected. There is no laboratory evidence of HIV infection. WBC 8.9 3.4 - 10.8 x10E3/uL [facility] RBC 5.37(H) 3.77 - 5.28 x10E6/uL [facility] Hemoglobin 12.8 11.1 - 15.9 g/dL [facility] Hematocrit 39.2 34.0 - 46.6 % [facility] MCV 73(L) 79 - 97 fL [facility] MCH 23.8(L) 26.6 - 33.0 pg [facility] MCHC 32.7 31.5 - 35.7 g/dL [facility] RDW 14.4 11.7 - 15.4 % [facility] Platelets 295 150 - 450 x10E3/uL [facility] Neutrophil Rel % 66 Not Estab. % [facility] Lymphocyte Rel % 27 Not Estab. % [facility] Monocyte Rel % 5 Not Estab. % [facility] Eosinophil Rel % 1 Not Estab. % [facility] Basophil Rel % 0 Not Estab. % [facility] Neutrophils Absolute 5.8 1.4 - 7.0 x10E3/uL [facility] Lymphocytes Absolute 2.4 0.7 - 3.1 x10E3/uL [facility] Monocytes Absolute 0.5 0.1 - 0.9 x10E3/uL [facility] Eosinophils Absolute 0.1 0.0 - 0.4 x10E3/uL [facility] Basophils Absolute 0.0 0.0 - 0.2 x10E3/uL [facility] Immature Granulocyte Rel % 1 Not Estab. % [facility] Immature Grans Absolute 0.1 0.0 - 0.1 x10E3/uL [facility] Blood 07/29/2021 2:53 PM EST 07/29/2021 Narrative [facility] ([facility]) - 08/02/2021 6:35 PM EST Performed at: [address] [id number] Lang Interpreter: Delvis Rainey PhD, Phone: [phone] Kobe Ortiz MD LAB BLOOD ORDERABLES Final Result [facility] [address] [place] [id number], [facility] [address] [place] [id number], * Chlamydia trachomatis, Neisseria gonorrhoeae, PCR - Urine, Urine, Clean Catch (07/29/2021 2:53 PM EST) Chlamydia trachomatis, YISEL Negative Negative [facility] Neisseria gonorrhoeae, YISEL Negative Negative [facility] Urine Urine specimen obtained by clean catch procedure / Unknown 07/29/2021 2:53 PM EST 07/29/2021 Comment:EWELINA CD- [id number] Narrative [facility] ([facility]) - 08/02/2021 6:35 PM EST Performed at: [address] [place] [id number] Lang Interpreter: Peri Edwards MD, Phone: [phone] us Kobe Ortiz MD MICROBIOLOGY - GENERAL ORD ERABLES Final Result [facility] ([facility]) [address] [place] [address], [place] [phone] [facility] [address] [place] [address], [place] [phone] from Last 3 Months or Most Recently Relevant to Health Maintenance Additional Health Concerns Infection Onset Date Last Indicated Influenza 05/29/2025 05/29/2025 Insurance [employer] Care Teams Dairy Feed Sales Consultant Relationship Specialty Start Date End Date Paulina Chowdary APRN [address] [place] [address] PCP - General Family Medicine 08/15/23
--- OUTSIDE RECORDS SUMMARY | 2025-06-03 17:21 | XMS_ITS | Encounter Summary ---
Author Organization [facility] Address [address] [place] [address] Care Team Providers Care Sponge Press Operator Name Role Phone EpiPaulina gray Julian TITLE AGENT Primary Care Provider [phone] Reason for Visit * Reason Onset Date Comments Med Refill 05/26/2025 Encounter Details Date Type Department Care Team (Late st Contact Info) Description 05/26/2025 Refill [facility] [address] [place] [phone] Chris Granda APRN [address] [place] [address] Attention deficit hyperactivity disorder (ADHD), [...] encounter Miscellaneous Notes * Telephone Encounter - Delmy Pollock RegSched Rep - 05/26/2025 11:16 AM EST PATIENT CALLED FOR REFILL REQUEST ON 30 MG ADDERALL. documented in this encounter Plan of Treatment Not on file documented as of this encounter Visit Diagnoses Diagnosis Attention deficit hyperactivity disorder (ADHD), combined type documented in this encounter Additional Health Concerns Assessment Noted Time PHQ-2 Depression Total Score: 2 08/15/19 24 2:57 PM EDT documented as of this encounter Care Teams Sponge Press Operator Relationship Specialty Start Date End Date Paulina Chowdary APRN [address] [place], [place] [id number] PCP - General Family Medicine 08/15/23 documented as of this encounter
[2025-06-03 17:22] VITALS: BP 120/85; PULSE 109; RESP 18; TEMP 36.6; O2SAT 98; BMI 41.0
[2025-06-03 17:31] LABS: Microscopic, Urine URINE MICROSCOPIC (MICROSCOPIC)
--- NOTE | 2025-06-03 17:36 | HMH.EDGENADL ---
Discharge Plan Disposition Patient Disposition: Home, Self-Care Prescriptions Prescriptions: New nitrofurantoin monohyd/m-cryst [Macrobid] 100 mg capsule 100 mg PO BID 5 Days Qty: 10 0RF Rx Instructions: must administer with a meal/food No Action albuterol sulfate 90 mcg/actuation HFA aerosol inhaler 2 puff INHALATION Q6H Referrals Follow up/Referrals: Provider,Referral, MD [Primary Care Provider, Medical] - See instructions Activity Restrictions/Add. Instructions Additional Instructions/Restrictions: As discussed we saw a gestational sac in your uterus which is likely indicative of early however all the components of are not present. It is likely that this is just because it is early however it is imperative that you follow-up in 48 hours for repeat ultrasound and repeat level you can do this with any OB doctor. If new or worsening symptoms please come back to the emergency room. Your urine was very contaminated and is difficult for me to tell if you have a true urinary tract infection however we will go ahead and treat with antibiotics. Clinical Impressions Clinical Impression: Early stage of , UTI (urinary tract infection) Print Language Print Language: Czech Discharge ED Provider: Gerry Ratliff General Adult HPI General Chief complaint: PAIN Stated complaint: abdominal pain , seven weeks preg Time Seen by Provider: 06/03/25 17:12 Mode of Arrival: Ambulatory Source of Information: Patient Description of Symptoms (Recalled from ER Triage Doc. by RN): Pt presents with lower abdominal cramping. NO bleeding, Pt just found out today she is . History of Present Illness HPI narrative: Patient is a 24-year-old female previous G1, P1 who had a new test positive today. She has had crampy lower abdominal pain for the last week no vaginal bleeding or discharge no vomiting, no trauma. Due to this in the setting of a positive test she presents here for continued evaluation. No dysuria. No other acute complaints at this time. Previous abdominal surgical history of appendectomy and cholecystectomy. Please note that above description of symptoms, in this electronic medical record under categorization of recalled from ER triage doctor by RN are reflective of an initial nursing assessment, however, is not reflective of my full history and physical exam that was personally taken and clarified. Consequentially, this preceding description of symptoms, which may include the patient's categorized chief complaint in the EMR, do not reflect my personal clinical impression, and the ultimate description of history of present illness and patient stated complaints should be deferred to this section of the note. Unless stated otherwise or congruent with this section of the note, additional signs, symptoms, or incongruence should be interpreted as inaccurate with my clinical impression. Related Data Home Medications ?Medication ?Instructions ?Recorded ?Confirmed albuterol sulfate 90 mcg/actuation 2 puff inhalation Q6H SOA 07/14/22 07/10/23 aerosol inhaler Previous Rx's ?Medication ?Instructions ?Recorded nitrofurantoin 100 mg PO BID UTI 5 days #10 caps 06/03/25 monohydrate/macrocrystals 100 mg capsule (Macrobid) Allergies Allergy/AdvReac Type Severity Reaction Status Date / Time diphenhydramine (From Allergy Mild Hives Verified 07/10/23 14:06 Benadryl) amoxicillin Allergy Blisters Verified 07/10/23 14:06 [facility] Disclaimer: The information contained in this section may have been updated after the patient was seen, as this information can be updated by other users. Medical History Asthma Attention Deficit Hyperactivity Disorder (ADHD) Insomnia Polyneuritis Seizure disorder Surgical History History of bladder surgery x2 as a child for urinary retention Status post cholecystectomy Family History Other Family history of stroke Lung cancer Social History Smoking Status: Never smoker alcohol intake: never substance use type: denies use current occupational status: unemployed Travel in the last 8 weeks?: None Have you lived/traveled outside US in past 30 days?: No Contact w/someone who lives/traveled outside US past 30 days?: No Exposure to someone with infectious disease in past 14 days?: No Do you have a fever (greater than 100.4 F or 38 C)?: No Have you tested positive for COVID-19?: No Exposed to someone with COVID-19 in past 14 days?: No Do you have a sore throat?: No Do you have a cough?: No Do you have any weakness?: No Do you have any diarrhea?: No Are you experiencing any unusual bleeding?: No Do you have any muscle aches/pain?: No Do you have any abdominal pain?: No Are you experiencing loss of taste or smell?: No Other Medical History Have you received the Pneumonia Vaccine: Yes ROS Obtained: Yes Systems reviewed as appropriate & no additional complaints except as documented Physical Exam General General appearance: alert and in no apparent distress Head Head exam: atraumatic and normocephalic Eye Eye exam: Present PERRL and EOMI ENT ENT exam: Present mucous membranes moist Neck Neck exam: Present normal inspection Chest Chest inspection: Present normal inspection and symmetric chest wall rise Respiratory Respiratory exam: Present normal lung sounds bilaterally; Absent respiratory distress Cardiovascular Cardiovascular exam: Present normal rhythm and tachycardia Abdominal Exam Abdominal exam: Present soft; Absent tenderness Extremities Exam Extremities exam: Present normal inspection Neurological Exam Neurological exam: Present alert Psychiatric Psychiatric exam: Present normal affect Skin Skin exam: Present warm and dry Medical Decision Making Medical Records Screening: Per USPSTF and CDC recommendations, given the prevalence of disease in our region, it is our hospital?s policy to screen for HIV and viral Hepatitis for all patients aged 18 and over and those with ongoing risk factors. Perfecto Inquiry Pt receiving controlled substance: No Vital Signs: 06/03/25 17:22 Temperature 97.9 F Temperature Source Oral Pulse Rate [Right] 109 H Respiratory Rate 18 Blood Pressure [Right Arm] 120/85 Blood Pressure Mean [Right Arm] 96 Blood Pressure Source [Right Arm] Automatic Cuff Blood Pressure Position [Right Arm] Sitting 02 Sat by Pulse Oximetry 98 Oxygen Delivery Method Room Air Lab Data Lab Results 06/03/25 17:15: Urine Color Yellow, Urine Appearance Sl cloudy, Urine pH 6.0, Ur Specific [place] >= 1.030, Urine Protein Negative, Urine Glucose (UA) Negative, Urine Ketones 3+, Urine Blood Trace-i, Urine Nitrate Positive A, Urine Bilirubin Negative, Urine Urobilinogen 0.2, Ur Leukocyte Esterase 1+ A, Urine RBC 3-5, Urine WBC 20-50, Ur Squamous Epith Cells 50-100, Urine Bacteria 4+ 06/03/25 17:40: WBC 10.7, RBC 5.99 H, Hgb 12.4, Hct 41.0, MCV 68.4 L, MCH 20.7 L, MCHC 30.2 L, RDW 16.5, Plt Count 350, MPV 9.1, Neut % (Auto) 73.6, Lymph % (Auto) 21.2, [place] % (Auto) 3.9, Eos % (Auto) 0.6, Baso % (Auto) 0.4, Neut # (Auto) 7.8, Lymph # (Auto) 2.3, [place] # (Auto) 0.4, Eos # (Auto) 0.1, Baso # (Auto) 0.0, Sodium 138, Potassium 3.8, Chloride 107, Carbon Dioxide 20 L, Anion Gap 14.8, BUN 13, Creatinine 0.90, Estimated Creat Clear 190, Estimated GFR 78, Est GFR ( Amer) 95, Glucose 95, Calcium 9.3, Total Bilirubin 0.5, AST 31, ALT 29, Alkaline Phosphatase 79, Troponin I < 0.01, Total Protein 8.9 H, Albumin 4.8, Globulin 4.1 H, Albumin/Globulin Ratio 1.2, Lipase 111, HCG, Quant 2660 H 06/03/25 17:40 06/03/25 17:40 Orders (Tests/Meds): ED MEDICATIONS Discontinued Medications Generic Name Dose Route Start Last Admin Trade Name Freq PRN Reason Stop Dose Admin Acetaminophen 1,000 mg 06/03/25 17:32 06/03/25 17:43 Acetaminophen 500mg Tab PO 06/03/25 17:33 1,000 mg ONCE ONE Administration ORDERS Category Date Time Status POCUS Point of Care (ER Only) Stat Exams 06/03/25 17:15 Completed CBC w/Auto Diff [Complete Blood Count Auto Diff] Stat Lab 06/03/25 17:40 Completed CMP [Comprehensive Metabolic Panel] Stat Lab 06/03/25 17:40 Completed HCG,Quantitative Stat Lab 06/03/25 17:40 Completed Lipase Stat Lab 06/03/25 17:40 Completed Trop I [Troponin I] Stat Lab 06/03/25 17:40 Completed Troponin I Q3H Lab 06/03/25 20:45 Ordered Troponin I Q3H Lab 06/03/25 23:45 Ordered UA [Urinalysis and Microscopic] Stat Lab 06/03/25 17:15 Completed UA [Urinalysis and Microscopic] Stat Lab 06/03/25 19:07 Ordered Urine Culture Stat Micro 06/03/25 17:15 Received US OB transvaginal Stat Ultrasound 06/03/25 18:26 Taken EKG Request [ECG Request] Stat Y 06/03/25 17:38 Ordered ECG Data Tracing #1: Independently inter by me rate is 109, rhythm is regular, axis is normal, no ST elevation in anatomical contiguous leads, T wave inversions inferior leads, QTc 406 Medical Decision Narrative: In summary patient is a 24-year-old female with past medical history described above who presents emergency department for evaluation of test positive and crampy lower abdominal pain. Patient is hemodynamically stable nontoxic-appearing upon arrival, afebrile. Differential diagnosis includes normal , ectopic , urinary tract infection, among others. Workup in totality will be conducted with hematologic labs urinalysis quant hCG. After hCG is obtained transvaginal ultrasound will be obtained. Initial inventions include Tylenol. Initial hematologic labs reviewed by me no significant leukocytosis, no DANGELO or critical electrolyte abnormality troponin undetectably low beta-hCG 2660 urinalysis interpreted by me has nitrate positive without proteinuria but is significantly contaminated. Transvaginal ultrasound preliminary tech report there is a gestational sac no identifiable yolk sac a corpus luteum cyst and both ovaries are otherwise normal. Patient was asked to repeat her urine sample but unfortunately does not have time and states that she has to leave the emergency department as they have to get back to [place]. I had a conversation with the patient and told him that there is a small but not a possible chance that this is an ectopic with a pseudo gestational sac although it is unlikely. Patient has a nontender abdomen hemodynamics are normal with minimal tachycardia. I will treat empirically for urinary tract infection without proteinuria with Macrobid and patient was instructed to follow-up in 48 hours for repeat ultrasound. We will follow-up on the formal radiology report since patient is not willing to stay until it comes back and patient provided correct phone number for us to call if anything abnormal results. Critical Care Critical Care Time Critical Care Time: No
--- NOTE | 2025-06-03 17:42 | ECG_ITS ---
APPROVED REPORT Exam: Resting ECG HR:109 bpm ECG Measurements Heart Rate 109 AXES NC 156 P 10 QRSd 93 QRS -2 QT 342 T -26 QTc 406 Conclusion SINUS TACHYCARDIA LOW QRS VOLTAGE IN PRECORDIAL LEADS [QRS DEFLECTION < 1.0 mV IN CHEST LEADS] VOLTAGE CRITERIA FOR LVH [MEETS CRITERIA IN ONE OF: R(aVL), S(V1), R(V5), R(V5/V6)+S(V1)] PROBABLE INFERIOR MYOCARDIAL INFARCTION , OF INDETERMINATE AGE [35 ms Q WAVE IN II/aVF] no STEMI Electronically signed by : ANCELMO KELLER, 06/10/2025 01:33:42
[2025-06-03] MEDS: ACETAMINOPHEN 500MG TAB 1000 MG PO (17:43)
[2025-06-03 17:46] LABS: Hematocrit 41.0 % (37.0-47.0); Hemoglobin 12.4 g/dL (12.2-16.2); Immature Granulocytes % 0.3 %; Mean Corpuscular HGB Conc 30.2 g/dL (31.8-35.4); Mean Corpuscular Hemoglobin 20.7 pg (27.0-31.2); Mean Corpuscular Volume 68.4 fl (81-99); Nucleated Red Blood Cells % 0 %; Platelet Count 350 K/mm3 (142-424); Red Blood Count 5.99 M/mm3 (4.20-5.40); Red Cell Distribution Width-SD 39.0 fL; White Blood Count 10.7 K/mm3 (4.8-10.8)
[2025-06-03 17:47] LABS: Bilirubin,Urine Negative (Negative); Color,Urine YELLOW (Yellow); Glucose,Urine (UA) Negative (Negative); Ketones,Urine 3+ (Negative); Leukocyte Esterase,Urine 1+ (Negative); PH,Urine 6.0 (5.0-8.5); Protein,Urine Negative (Negative); Specific Gravity, Urine >= 1.030 (1.005-1.030); Urobilinogen,Urine 0.2 EU/dl (0.2)
[2025-06-03 17:58] LABS: Alanine Aminotransferase 29 U/L (12-78); Albumin Level 4.8 g/dl (3.5-5.0); Albumin/Globulin Ratio 1.2 (1.1-1.8); Alkaline Phosphatase 79 U/L (38-126); Anion Gap 14.8 mEq/L (5-15); Aspartate Amino Transferase 31 U/L (14-36); Bilirubin,Total 0.5 mg/dl (0.2-1.3); Blood Urea Nitrogen 13 mg/dl (7-17); Calcium 9.3 mg/dl (8.4-10.2); Carbon Dioxide 20 mmol/L (22.0-30.0); Chloride 107 mmol/L (98-107); Creatinine Clearance Estimated 190 mL/min (50-200); Creatinine,Serum 0.90 mg/dl (0.52-1.04); Estimated Glomerular Filt Rate 78 ml/min (>60); GFR (African American) 95 ML/MIN (>60); Globulin 4.1 g/dL (1.3-3.2); Glucose 95 mg/dl (74-100); Lipase 111 U/L (23-300); Potassium 3.8 mmoL/L (3.5-5.1); Sodium 138 mmol/L (136-145); Total Protein,Serum 8.9 g/dl (6.3-8.2)
[2025-06-03 18:12] LABS: Troponin I < 0.01 ng/ml (0.00-0.034)
[2025-06-03 18:13] LABS: Bacteria,Urine 4+ /lpf; Squamous Epithelial Cell,Urine 50-100 #/hpf (0-5); WBC,Urine 20-50 #/hpf (0-3)
--- NOTE | 2025-06-03 18:26 | US_ITS ---
PROCEDURE INFORMATION: Exam: US , Transvaginal Exam date and time: 06/03/2025 6:39 PM Age: 24 years old Clinical indication: complicated by abdominal or pelvic pain; Lower; First trimester (<14 weeks 0 days); Gestational age or lmp: ? 5w; ; Unsure of last lmp; Additional info: Preg location cramping pain TECHNIQUE: Imaging protocol: Real-time transvaginal obstetrical ultrasound of the maternal pelvis with image documentation. Transvaginal imaging was used for better evaluation of the fetus, adnexa, and/or cervix. COMPARISON: US GALLBLADDER 06/28/2022 8:41 AM FINDINGS: Gestation: Single intrauterine gestation with a mean sac diameter of 0.48 cm. No yolk sac or pole identified. Placenta: No subchorionic bleed. MATERNAL: Cervix: Closed. Right ovary/adnexa: Unremarkable right ovary. No mass. Vascular flow present. No identifiable adnexal mass. Left ovary/adnexa: Unremarkable left ovary. 1.1 cm corpus luteal cyst. No mass. Vascular flow present. No identifiable adnexal mass. Intraperitoneal space: No free fluid. IMPRESSION: Possible early intrauterine with an ultrasound estimated gestational age of 5 weeks 0 days. No yolk sac or pole identified. Though no adnexal masses were identified, non-visualized ectopic or early loss cannot be excluded. Recommend close clinical follow-up and serial imaging as clinically indicated to assess for viability.
--- NOTE | 2025-06-03 18:28 | PC.NURSE ---
radiology aware of ultrasound
--- NOTE | 2025-06-03 18:31 | HMH.ITSTN ---
U/S has been called @[id number]
--- NOTE | 2025-06-03 18:40 | PC.NURSE ---
US is being called in.
--- NOTE | 2025-06-03 19:20 | PC.NURSE ---
Per Raji GHOSH she rounded on the pt. They expressed concern about needing to be in [place] by 2129. updated, and requested a new urine due to contamination. ANGELITA accompanied the pt to the bathroom. call rachelle in reach.
--- NOTE | 2025-06-03 19:37 | PC.NURSE ---
Per Raji pt returned from the bathroom unsuccessful. Pt and friend state the initial urine will just have to be used because they need to leave. updated, and is now bedside talking with the pt.
[2025-06-03] MEDS: NITROFURANTOIN 100MG CAPSULE 100 MG PO (19:46)
[2025-06-03 19:49] VITALS: BP 120/76; PULSE 100; RESP 20; TEMP 36.7; O2SAT 100
== END 2025-06-03 19:54 | disposition home or self-care (01) ==
PROVIDERS: Emergency Provider Emergency Medicine
DX: O26.891 Other specified pregnancy related conditions, first trimester (principal); R10.30 Lower abdominal pain, unspecified; O23.41 Unspecified infection of urinary tract in pregnancy, first trimester; Z3A.01 Less than 8 weeks gestation of pregnancy; B96.20 Unspecified Escherichia coli [E. coli] as the cause of diseases classified elsewhere
CPT/HCPCS: 76817; 80053; 81001; 83690; 84484; 84702; 85025; 87086; 87088; 87186; 93005; 99284